=== PATIENT | male | born 1990 | race Caucasian/White ===

== ENCOUNTER 2022-05-25 03:35 | Emergency (ER) | payer OTHER ==
[~2022-05-25] VITALS: Ht 182.8 cm; Wt 81.0 kg
[2022-05-25 03:37] VITALS: BP 125/75
[2022-05-25] MEDS ORDERED: TETANUS,DIPTH,PERTUSS P/F (BOOSTRIX) 0.5 ML VIAL IM ONE (04:00)
--- NOTE | 2022-05-25 04:38 | ED Integumentary General ---
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 Patient states he was breaking a window when a piece of glass fell onto the back of his hand. Landed just over the third metacarpophalangeal joint of the right hand. He had immediate bleeding. Pain with flexion and extension. Denies numbness to the digit another small superficial laceration noted just medial to that at the base of the fourth metacarpophalangeal joint. This laceration is too small to require suturing. No other complaints of illness or injury. Patient is requesting an updated tetanus shot. Timing/Duration: just prior to arrival Severity: mild Location: hands Possible Cause: other (Laceration) Associated Symptoms: denies symptoms Allergies and Home Medications Allergies Coded Allergies: No Known Drug Allergies (Unverified , 05/25/22) Patient Home Medication List Home Medication List Reviewed: Yes Review of Systems Review of Systems Constitutional: see HPI Musculoskeletal: joint pain (Third metacarpophalangeal joint of the right hand) Physical Exam Vital Signs Capillary Refill : General Appearance: WD/WN, no apparent distress HEENT: PERRL/EOMI Respiratory: no respiratory distress, no accessory muscle use Extremities: normal range of motion, normal inspection Neurologic/Psychiatric: alert, normal mood/affect, oriented x 3 Skin: other (3.5 cm laceration noted to the dorsum of the right hand at the base of the third digit overlying the metacarpophalangeal joint. It is angulate d in nature almost 90 degrees. Minimal active bleeding noted. Patient has intact neurovascular function/sensation to the third digit. No loss of tendon function and extension) Procedures/Interventions Wound Location: Upper Extremities Other Wound Location Right hand, base of third digit overlying metacarpophalangeal joint Wound Length (cm): 3.5 Wound's Depth, Shape: superficial, flap Wound Explored: clean Irrigated w/ Saline (ccs): 200 Betadine Prep?: Yes Anesthesia: 0.5% Sensorcaine Volume Anesthetic (ccs): 2 Suture: Prolene Suture Size: 4-0 Number of Sutures: 5 Layer Closure?: 1 Sterile Dressing Applied?: Yes Progress/Results/Core Measures Results/Orders My Orders Orders - MONICA POLO MD Dipht,Pertuss(Acell),Tet Adult (Boostrix (05/25/22 04:00) Medications Given in ED Current Medications Medications Dose Ordered Sig/Olive Route Start Time Stop Time Status Last Admin Dose Admin Diphtheria/ Tetanus/Acell Pertussis 0.5 ml ONCE ONCE IM 05/25/22 04:00 05/25/22 04:01 DC 05/25/22 04:15 0.5 ML Progress Progress Note : Time: 04:34 Progress Note Wound was anesthetized with 0.5% bupivacaine. Copiously scrubbed with surgical scrubbed and irrigated. Wound margins were approximated with a corner stitch. 4 other superficial interrupted Prolene 4-0 sutures were placed around the corner stitch. No active bleeding after repair. The smaller superficial laceration just adjacent to this 1 was cleansed as well. It did not require sutures patient counseled on wound maintenance, management. Advised to have stitches out in 10 days Departure Impression Primary Impression: Laceration of right hand Qualified Codes: S61.411A - Laceration without foreign body of right hand, initial encounter Disposition: HOME, SELF-CARE Condition: Stable Departure-Patient Inst. Decision time for Depature: 04:35 Patient Instructions: Laceration Repair With Stitches (DC) Add. Discharge Instructions: Keep the wound clean dry and covered for the next couple of days. Wash gently with soap and water. You can apply a little Neosporin or triple antibiotic ointment twice a day for the first couple of days. If the wound begins to look red, more swollen or draining pus it needs to be reevaluated. Tylenol and/or ibuprofen as needed for discomfort. Ice packs for swelling to the area of concern. The stitches need to come out in 10 to 12 days. Return to the emergency department for any new, concerning or emergent complaints. Your tetanus shot was updated today MONICA POLO MD May 25, 2022 04:37
== END 2022-05-25 04:39 | disposition home or self-care (01) ==
LOC: ER FS 03:38
DX: S61.411A Laceration without foreign body of right hand, initial encounter (principal); Z23 Encounter for immunization; W25.XXXA Contact with sharp glass, initial encounter; Y99.0 Civilian activity done for income or pay
CPT/HCPCS: 12001; 90715